=== PATIENT | female | born 2000 | race Caucasian/White ===

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

== ENCOUNTER 2021-12-20 05:42 | Emergency (ER) | payer OTHER, MEDICAID, SELFPAY ==
[2021-12-20 05:46] VITALS: BP 139/76; PULSE 76; RESP 16; TEMP 36.7; O2SAT 99; BMI 29.0
--- NOTE | 2021-12-20 06:06 | ED_ITS ---
HPI - Abdominal Pain General: Chief Complaint: Abdominal Pain Stated Complaint: ABD Pain and Back Pain Time Seen by Provider: 12/20/21 05:58 Source: patient Mode of arrival: ambulatory History of Present Illness: 21-year-old female presents emergency room with complaints of right-sided abdominal pain radiating to the pelvic area that began overnight. She has a history of ovarian cysts. She has Mirena and has been amenorrheic for the last 4 years. She denies any dysuria urgency or frequency no hematuria. Localizes the pain to the right lower quadrant. Vomiting x1. No hematochezia or melena no hematemesis coffee-ground emesis. Has not noticed anything that makes it better or worse. MD elicited complaint: abdominal pain Pertinent past history: other (Ovarian cysts) Onset (ago): hour(s) Pain Consistency: constant Location: RLQ Severity: mild Quality: cramping Radiation: suprapubic (Right side) Exacerbating factors: nothing Relieving factors: nothing Associated Symptoms: Reports GI cramping, nausea and vomiting; Denies anorexia, belching, bloating, change in bowel habits, change in stool character, chills, coffee ground emesis, constipation, diarrhea, dyspepsia, dysuria, excessive flatus, fever(s), heartburn, hematochezia, hematuria, hematemesis, fecal incontinence, loose stools, melena, poor appetite and syncope Review of Systems Const: Denies: fever(s), chills, fatigue or malaise ENMT: Denies: throat pain, ear or mastoid pain, nasal discharge or nasal congestion Card: Denies: chest pain or syncope Resp: Denies: dyspnea, productive cough or non-productive cough GI: Reports: abdominal pain, nausea, vomiting and GI cramping; Denies: hematemesis, coffee ground emesis, heartburn, diarrhea, constipation, bloating, belching, excessive flatus, fecal incontinence, change in bowel habits, change in stool character, hematochezia or melena : Denies: flank pain, difficulty voiding, dysuria, urinary frequency, urinary urgency or hematuria Skin/Breast: Denies: rash or pruritus PFSH ED PFSH: Medical History Pelvic pain Psychiatric care Family History Grandfather Hypertension maternal Denies family history of Diabetes Clotting disorder Hyperlipidemia Anesthesia complication Bleeding disorder Stroke Social History Smoking and tobacco status: never smoked Second hand smoke exposure: No Alcohol intake: never Physical Exam Const: GENERAL APPEARANCE: cooperative and comfortable ORIENTATION/CONSCIOUSNESS: Yes awake, Yes oriented to person, Yes oriented to place and Yes oriented to time HENMT: COMMON NORMALS: normocephalic, atraumatic and hearing grossly normal bilaterally HEAD & SCALP: normocephalic and atraumatic Resp: COMMON NORMALS: normal respiratory effort, No retractions, No use of accessory muscles and clear to auscultation bilaterally AUSCULTATION: clear to auscultation bilaterally Cardio: COMMON NORMALS: regular rate, regular rhythm and No murmurs present (Cardio) RATE: regular rate RHYTHM: regular rhythm GI: COMMON NORMALS: Soft to palpation and No hepatosplenomegaly present AUSCULTATION: Yes normoactive bowel sounds PALPATION: Yes Soft to palpation, No Tenderness to palpation present (GI), No Guarding due to palpation present (GI) and Yes No hepatosplenomegaly present Extremity: COMMON NORMALS: normal to inspection, capillary refill normal, no clubbing, cyanosis or edema, no calf tenderness and no pedal edema Neuro: SENSORIUM/ORIENTATION: Yes oriented to person, Yes oriented to place and Yes oriented to time Skin: COMMON NORMALS: no rashes or lesions noted GENERAL SKIN EXAM: no rashes or lesions noted Course Vital Signs: Vital signs: Vital Signs Temperature 98.1 F 12/20/21 05:46 Pulse Rate 84 12/20/21 08:02 Respiratory Rate 16 12/20/21 05:46 Blood Pressure 120/70 12/20/21 08:02 Pulse Oximetry 98 12/20/21 08:02 Oxygen Delivery Me thod 12/20/21 05:46 MDM - Abdominal Pain Medical Decision Making Labs and imaging reviewed. No emergent findings. Suspect gastroenteritis. Benign abdominal exam with normal white count. Return if is further problems. Clinical diet for 24 to 48 hours and advance as tolerated Medical Records I reviewed the patient's medical records. Lab Data I reviewed the patient's lab results. : 12/20/21 05:50 12/20/21 05:50 Labs/Radiology: Laboratory Results WBC 7.3 10^3/uL (4.5-13.0) 12/20/21 05:50 RBC 4.58 10^6/uL (4.1-5.3) 12/20/21 05:50 Hgb 13.7 g/dL (11.5-15.3) 12/20/21 05:50 Hct 40.9 % (37.0-47.0) 12/20/21 05:50 MCV 89.3 fl (81-99) 12/20/21 05:50 MCH 29.9 pg (28.0-34.0) 12/20/21 05:50 MCHC 33.5 g/dL (30.0-36.0) 12/20/21 05:50 RDW 12.6 % (12.1-15.1) 12/20/21 05:50 Plt Count 267 10^3/cmm (130-400) 12/20/21 05:50 MPV 12.3 fL (7.4-10.4) H 12/20/21 05:50 Neut % (Auto) 61.4 % 12/20/21 05:50 Lymph % (Auto) 27.2 % 12/20/21 05:50 [place] % (Auto) 9.3 % 12/20/21 05:50 Eos % (Auto) 1.2 % 12/20/21 05:50 Baso % (Auto) 0.5 % 12/20/21 05:50 Neut # (Auto) 4.50 10^3/uL (1.8-8.0) 12/20/21 05:50 Lymph # (Auto) 2.0 10^3/uL (1.5-6.5) 12/20/21 05:50 [place] # (Auto) 0.7 10^3/uL (0.2-0.9) 12/20/21 05:50 Eos # (Auto) 0.1 10^3/uL (0.0-0.8) 12/20/21 05:50 Baso # (Auto) 0.0 10^3/uL (0.0-0.1) 12/20/21 05:50 Nucleated RBC % (auto) 0 % 12/20/21 05:50 Nucleated RBCs # 0.0 /100WBC 12/20/21 05:50 Sodium 138 mmol/L (136-145) 12/20/21 05:50 Potassium 4.4 mmol/L (3.5-5.1) 12/20/21 05:50 Chloride 104 mmol/L (98-107) 12/20/21 05:50 Carbon Dioxide 24 mmol/L (22-29) 12/20/21 05:50 Anion Gap 14.4 (5-19) 12/20/21 05:50 BUN 13 mg/dL (6-20) 12/20/21 05:50 Creatinine 1.0 mg/dL (0.5-0.9) H 12/20/21 05:50 GFR Calculation 70.7 mL/min (90-130) L 12/20/21 05:50 Glucose 90 mg/dL (65-115) 12/20/21 05:50 Calculated Osmolality 286 mOsm/kg (285-295) 12/20/21 05:50 Calcium 9.4 mg/dL (8.5-10.5) 12/20/21 05:50 Total Bilirubin 0.4 mg/dL (0.15-1.2) 12/20/21 05:50 AST 12 U/L (0-32) 12/20/21 05:50 ALT 8 U/L (0-33) 12/20/21 05:50 Alkaline Phosphatase 76 U/L (35-105) 12/20/21 05:50 Total Protein 6.9 g/dL (6.6-8.7) 12/20/21 05:50 Albumin 4.3 g/dL (3.5-5.2) 12/20/21 05:50 Globulin 2.6 g/dL (1.3-4.6) 12/20/21 05:50 Lipase 24 U/L (13-60) 12/20/21 05:50 HCG, Qual Negative (Negative) 12/20/21 05:50 Urine Color Yellow (Yellow) 12/20/21 05:50 Urine Appearance Clear (CLEAR) 12/20/21 05:50 Urine pH 5 (5-7) 12/20/21 05:50 Ur Specific [place] 1.020 (1.005-1.030) 12/20/21 05:50 Urine Protein Neg (Negative) 12/20/21 05:50 Urine Glucose (UA) Norm (Normal) 12/20/21 05:50 Urine Ketones Negative (Negative) 12/20/21 05:50 Urine Blood Neg (Negative) 12/20/21 05:50 Urine Nitrate Negative (Negative) 12/20/21 05:50 Urine Bilirubin Neg (Negative) 12/20/21 05:50 Urine Urobilinogen Norm mg/dL (Negative) 12/20/21 05:50 Ur Leukocyte Esterase Negative (Negative) 12/20/21 05:50 Discharge Plan Discharge Patient Disposition: Home Clinical Impression: Abdominal pain Condition: Stable Prescriptions: New diclofenac sodium 75 mg tablet,delayed release (DR/EC) 75 mg PO Q12H PRN (Reason: pain) Qty: 20 0RF No Action adapalene [Differin] 0.3 % gel with pump 1 applic topical DAILY Qty: 45 2RF Rx Instructions: Apply a pea sized amount to clean dry face nightly Mirena 20 mcg/24 hours (5 yrs) 52 mg intrauterine device 1 device INTRAUTERI ONCE Discharge Orders: Discharge ED (Routine); Ordered 12/20/21 Ordered By: Pedro Singer Discharge Diet: Clear Liquid Discharge Activity: Increase activity as tolerated Patient Instructions: Abdominal Pain (ED), Opioid Safety, Pain Management Activity Restrictions/Additional Instructions: Clear liquid diet 24 to 48 hours use diclofenac as needed. Recheck with primary care if not improving. Stand Alone Forms: Work/School Release Coding Level of Care Code ED Clinical Coordinator for Pawang Fwd Exam Detailed
[2021-12-20 06:11] LABS: Basophils % 0.5 %; Eosinophils # 0.1 10^3/uL (0.0-0.8); Eosinophils % 1.2 %; Hematocrit 40.9 % (37.0-47.0); Hemoglobin 13.7 g/dL (11.5-15.3); Lymphocytes % 27.2 %; Mean Corpuscular HGB Conc 33.5 g/dL (30.0-36.0); Mean Corpuscular Hemoglobin 29.9 pg (28.0-34.0); Mean Corpuscular Volume 89.3 fl (81-99); Mean Platelet Volume 12.3 fL (7.4-10.4); Monocytes # 0.7 10^3/uL (0.2-0.9); Monocytes % 9.3 %; Neutrophils % 61.4 %; Nucleated Red Blood Cells % 0 %; Platelet Count 267 10^3/cmm (130-400); Red Blood Count 4.58 10^6/uL (4.1-5.3); Red Cell Distribution Width 12.6 % (12.1-15.1); White Blood Count 7.3 10^3/uL (4.5-13.0)
[2021-12-20 06:18] LABS: HCG, Serum Qual Negative (Negative)
[2021-12-20 06:19] LABS: Add Urine Microscopic? NO; Charge for UA Resulting for Rev
[2021-12-20 06:26] LABS: Alanine Aminotransferase 8 U/L (0-33); Albumin Level 4.3 g/dL (3.5-5.2); Alkaline Phosphatase 76 U/L (35-105); Anion Gap 14.4 (5-19); Aspartate Amino Transferase 12 U/L (0-32); Blood Urea Nitrogen 13 mg/dL (6-20); Calcium 9.4 mg/dL (8.5-10.5); Carbon Dioxide 24 mmol/L (22-29); Chloride 104 mmol/L (98-107); Globulin 2.6 g/dL (1.3-4.6); Glomerular Filtration Rate 70.7 mL/min (90-130); Glucose 90 mg/dL (65-115); Lipase 24 U/L (13-60); Osmolality Calculated 286 mOsm/kg (285-295); Potassium 4.4 mmol/L (3.5-5.1); Sodium 138 mmol/L (136-145); Total Bilirubin 0.4 mg/dL (0.15-1.2); Total Protein 6.9 g/dL (6.6-8.7)
[2021-12-20 06:45] LABS: Bilirubin Urine Neg (Negative); Blood Urine Neg (Negative); Glucose Urine UA Norm (Normal); Ketones Urine Negative (Negative); Leukocyte Esterase Urine Negative (Negative); Nitrate Urine Negative (Negative); Protein Urine Neg (Negative); Urine Appearance Clear (CLEAR); Urine Color Yellow (Yellow); Urobilinogen Urine Norm (Negative); pH Urine 5 (5-7)
[2021-12-20 08:02] VITALS: BP 120/70; PULSE 84; O2SAT 98
== END 2021-12-20 08:04 | disposition home or self-care (01) ==
PROVIDERS: Emergency Provider Family Medicine
DX: R10.9 Unspecified abdominal pain (principal)
CPT/HCPCS: 80053; 81003; 83690; 84703; 85025; 99283

== ENCOUNTER 2022-03-16 06:39 | Emergency (ER) | payer MEDICAID, SELFPAY ==
[2022-03-16 06:43] VITALS: BP 120/82; PULSE 126; RESP 18; TEMP 36.3; O2SAT 99; BMI 29.0
[2022-03-16 06:51] VITALS: BP 120/69; PULSE 105; RESP 18; O2SAT 96
--- NOTE | 2022-03-16 06:55 | XRR_ITS ---
PROCEDURE INFORMATION: Exam: XR Left Hand Exam date and time: 03/16/2022 7:06 AM Age: 21 years old Clinical indication: Injury or trauma; Fall; Blunt trauma (contusions or hematomas); Left; Ring finger TECHNIQUE: Imaging protocol: Radiologic exam of the Left hand. Views: 3 or more views. COMPARISON: No relevant prior studies available. FINDINGS: Bones/joints: Acute displaced fracture of the middle phalanx the ring finger. Soft tissues: There is soft tissue edema of the ring finger. XR/XR hand LT min 3V* [id number] IMPRESSION: Acute displaced fracture of the middle phalanx the ring finger.
--- NOTE | 2022-03-16 07:02 | W.ED.EXTPRO ---
HPI - Extremity Problem General: Chief complaint: Extremity Injury, Upper Stated complaint: Left fingers are in pain. Time Seen by Provider: 03/16/22 06:55 Source: patient Mode of arrival: ambulatory History of Present Illness: 21-year-old female stumbled and fell down the stairs this morning left fourth finger deformity and pain. She also has an abrasion on the inner aspect of her lower lip. She denies loss consciousness denies any other injuries. No neck or head pain. No recent illness cough or cold symptoms MD Complaint: extremity pain Onset (ago): minute(s) Pain Consistency: constant Location: left (Fourth finger) Quality: sharp Relieving factors: rest Exacerbating factors: palpation Associated symptoms: Deny fever(s) Review of Systems Const: Reports: body aches; Denies: fever(s), chills, change in appetite, fatigue or malaise ENMT: Denies: throat pain, ear or mastoid pain, nasal discharge or nasal congestion Resp: Denies: dyspnea, productive cough or non-productive cough PFSH ED PFSH: Medical History Pelvic pain Posttraumatic stress disorder Psychiatric care Family History Grandfather Hypertension maternal Denies family history of Diabetes Clotting disorder Hyperlipidemia Anesthesia complication Bleeding disorder Stroke Social History Smoking and tobacco status: never smoked Second hand smoke exposure: No Alcohol intake: never Physical Exam Const: COMMON NORMALS: no acute distress GENERAL APPEARANCE: cooperative and comfortable ORIENTATION/CONSCIOUSNESS: Yes awake, Yes oriented to person, Yes oriented to place and Yes oriented to time HENMT: COMMON NORMALS: normocephalic and hearing grossly normal bilaterally HEAD & SCALP: normocephalic Eye: COMMON NORMALS: Equal, round and reactive pupils present, EOMs intact bilaterally, conjunctivae normal and no scleral icterus CONJUNCTIVA: Yes conjunctivae normal PUPIL: Yes Equal, round and reactive pupils present Neck/C-Spine: COMMON NORMALS: full ROM, no lymphadenopathy, supple and no JVD Resp: COMMON NORMALS: normal respiratory effort, No retractions, No use of accessory muscles and clear to auscultation bilaterally AUSCULTATION: clear to auscultation bilaterally Cardio: COMMON NORMALS: no JVD, regular rate, regular rhythm and No murmurs present (Cardio) RATE: regular rate RHYTHM: regular rhythm Extremity: OTHER: Slight deformity of the right fourth finger at the middle phalanx Neuro: SENSORIUM/ORIENTATION: Yes oriented to person, Yes oriented to place and Yes oriented to time Skin: COMMON NORMALS: no rashes or lesions noted GENERAL SKIN EXAM: no rashes or lesions noted Course Vital Signs: Vital signs: Vital Signs Temperature 97.4 F L 03/16/22 06:43 Pulse Rate 105 H 03/16/22 06:51 Respiratory Rate 18 03/16/22 06:51 Blood Pressure 120/69 03/16/22 06:51 Pulse Oximetry 96 03/16/22 06:51 MDM - Extremity (Nontraumatic) Medical Decision Making Longitudinal fracture of the middle phalanx of the left fourth finger. Splint applied elevate ice tramadol or Tylenol for pain and set up follow-up with orthopedics. Medical Records I reviewed the patient's medical records. Lab Data I reviewed the patient's lab results. Discharge Plan Discharge Patient Disposition: Home Clinical Impression: Fracture of phalanx of digit of hand Qualifiers: Encounter type: initial encounter Fracture type: closed Qualified Code(s): S62.609A - Fracture of unspecified phalanx of unspecified finger, initial encounter for closed fracture Condition: Stable Prescriptions: New tramadol 50 mg tablet 50 mg PO Q8H PRN (Reason: pain) Qty: 10 0RF No Action Mirena 20 mcg/24 hours (5 yrs) 52 mg intrauterine device 1 device INTRAUTERI ONCE bupropion HCl [Wellbutrin XL] 300 mg tablet extended release 24 hr 300 mg PO QAM Qty: 30 1RF prazosin 1 mg capsule 1 mg PO .HS Qty: 30 1RF Discharge Orders: Discharge ED (Routine); Ordered 03/16/22 Ordered By: Pedro Singer Discharge Diet: Usual diet Discharge Activity: Limit activity as instructed Patient Instructions: Opioid Safety, Pain Management Activity Restrictions/Additional Instructions: You were seen today for pain in the left fourth finger. X-ray showed you have a fracture of the middle phalanx (middle bone of the finger). Wear the splint until you are seen by orthopedics. Keep the third and fourth finger fili taped together on the splint. Ice elevate you can use the tramadol as needed along with Tylenol for discomfort. Stand Alone Forms: Work/School Release Coding Level of Care Code ED Operations Processor for Jose Miguel Fwd Exam Detailed
--- NOTE | 2022-03-18 11:37 | DCPLANNER ---
Addendum entered by Lelo Varner 03/26/22 14:48: Patient had a follow up appointment scheduled with ortho - patient did attend appointment. Addendum entered by Lelo Varner 03/20/22 11:32: Patient has a follow up appointment scheduled for Tuesday, March 22, 2022 at 10:[address] Braxton at ortho. Clinic will call patient with appointment information. Original Note: manager epic had message to schedule a follow up appointment for patient with ortho. manager epic sent patients information to the front office staff at ortho. Patients information will be printed and reviewed. Clinic will call patient with appointment information.
== END 2022-03-16 07:47 | disposition home or self-care (01) ==
PROVIDERS: Emergency Provider Family Medicine
DX: S62.625A Displaced fracture of middle phalanx of left ring finger, initial encounter for closed fracture (principal); W10.8XXA Fall (on) (from) other stairs and steps, initial encounter
CPT/HCPCS: 73130; 99283

== ENCOUNTER 2022-03-22 01:00 | Outpatient (CLI) | payer MEDICAID, SELFPAY | END 2022-03-22 23:00 | disposition home or self-care (01) | LOC: SPT 04-16 18:37 | PROVIDERS: Visit Provider Orthopaedic Surgery | DX: Z46.89 Encounter for fitting and adjustment of other specified devices (principal); S62.609A Fracture of unspecified phalanx of unspecified finger, initial encounter for closed fracture; X58.XXXA Exposure to other specified factors, initial encounter | CPT/HCPCS: L3982 ==

== ENCOUNTER → 2022-03-22 11:10 | Outpatient (BNVA) | payer MEDICAID, SELFPAY | PROVIDERS: Referring Provider Family Medicine; Visit Provider Orthopaedic Surgery | DX: S62.653A Nondisplaced fracture of middle phalanx of left middle finger, initial encounter for closed fracture (principal); W10.9XXA Fall (on) (from) unspecified stairs and steps, initial encounter | CPT/HCPCS: 73140 ==

== ENCOUNTER → 2022-03-27 15:37 | Outpatient (BNVA) | payer MEDICAID, SELFPAY | PROVIDERS: Visit Provider Orthopaedic Surgery | DX: S62.625A Displaced fracture of middle phalanx of left ring finger, initial encounter for closed fracture (principal); X58.XXXA Exposure to other specified factors, initial encounter | CPT/HCPCS: 73130 ==

== ENCOUNTER 2022-08-11 18:50 | Emergency (ER) | payer MEDICAID, SELFPAY ==
[2022-08-11 19:11] VITALS: BP 129/82; PULSE 114; RESP 14; TEMP 36.9; O2SAT 100; BMI 29.0
[2022-08-11 19:17] VITALS: BP 110/59
--- NOTE | 2022-08-11 19:21 | USR_ITS ---
PROCEDURE INFORMATION: Exam: US First Trimester, Transabdominal and US , Transvaginal Exam date and time: 08/11/2022 7:51 PM Age: 21 years old Clinical indication: Lmp or gestational age (in weeks): 6w 1 d; Antepartum complications; Bleeding; ; Additional info: Vaginal bleeding LABS AND CLINICAL REPORTS: Last menstrual period start date: 06/29/2022 Gestational age (Established): 6 w 1 d Estimated due date (Established): 04/05/2023 TECHNIQUE: Imaging protocol: Real-time transabdominal obstetrical ultrasound of the maternal pelvis and a first trimester , less than 14 weeks 0 days, with image documentation. Transvaginal imaging was used for better evaluation of the fetus, adnexa, and/or cervix. COMPARISON: CT abdomen pelvis w con* [id number] 10/23/2020 12:55 PM FINDINGS: Gestation: Yolk sac measures 3 mm. Embryonic/ heart rate: 164 bpm. Extra-embryonic membranes/Placenta: Unremarkable. No subchorionic bleed. Amniotic fluid: Amniotic fluid and extra-amniotic fluid is normal for gestational age. BIOMETRY: Gestational age (AUA): 6 w 1 d [place]-Rump length (CRL): 4.1 mm. EGA (CRL) is 6 w 1 d MATERNAL: Uterus: Unremarkable. Cervix: Unremarkable. Right ovary/adnexa: Unremarkable ovary. Left ovary/adnexa: Unremarkable ovary. Intraperitoneal space: No intraperitoneal free fluid. US/US OB <=14 wk fetus w transvag IMPRESSION: Live intrauterine gestation.
[2022-08-11] MEDS: sodium chloride 0.9% 1,000 ML 999 ML IV (19:41)
[2022-08-11 20:15] LABS: Basophils % 0.2 %; Eosinophils # 0.1 10^3/uL (0.0-0.8); Eosinophils % 0.7 %; Hematocrit 40.9 % (37.0-47.0); Hemoglobin 13.4 g/dL (11.5-15.3); Lymphocytes % 23.9 %; Mean Corpuscular HGB Conc 32.8 g/dL (30.0-36.0); Mean Corpuscular Hemoglobin 29.1 pg (28.0-34.0); Mean Corpuscular Volume 88.9 fl (81-99); Mean Platelet Volume 11.7 fL (7.4-10.4); Monocytes # 0.8 10^3/uL (0.2-0.9); Monocytes % 6.1 %; Neutrophils # 8.66 10^3/uL (1.8-8.0); Neutrophils % 68.6 %; Nucleated Red Blood Cells % 0 %; Platelet Count 264 10^3/cmm (130-400); Red Cell Distribution Width 12.4 % (12.1-15.1); White Blood Count 12.6 10^3/uL (4.5-13.0)
--- NOTE | 2022-08-11 20:16 | ED_ITS ---
HPI - General: Chief complaint: OB/Uterine Contractions Stated complaint: 17 Weeks Preg\Bleeding Time Seen by Provider: 08/11/22 18:56 Source: patient Mode of arrival: ambulatory History of Present Illness: 21-year-old female who is roughly 6 weeks states she has had some slight spotting today. States it seemed to happen after sex states that she went to the bathroom when she checked the ER no bleeding was a little heavier but still minimal not even going through a pad no clots she is denying any severe pain or vomiting. Associated symptoms: Deny abdominal pain, dysuria, nausea or vomiting Review of Systems Const: Denies: fever(s), chills, body aches or change in appetite ENMT: Denies: throat pain or dental pain Card: Denies: chest pain Resp: Denies: dyspnea GI: Denies: abdominal pain, nausea, vomiting or diarrhea : Reports: vaginal bleeding; Denies: dysuria Musc: Denies: neck pain or back pain Skin/Breast: Denies: rash PFSH ED 2 PFSH: Medical History Pelvic pain Posttraumatic stress disorder Psychiatric care Family History Grandfather Hypertension maternal Denies family history of Diabetes Clotting disorder Hyperlipidemia Anesthesia complication Bleeding disorder Stroke Social History Smoking and tobacco status: never smoked Second hand smoke exposure: No Alcohol intake: never Substance/Drug Use: never Physical Exam Const: COMMON NORMALS: no acute distress, patient oriented x3 and healthy appearing HENMT: COMMON NORMALS: normocephalic and atraumatic HEAD & SCALP: normocephalic and atraumatic Neck/C-Spine: COMMON NORMALS: full ROM and supple Chest: COMMONS NORMALS: normal inspection of the chest and normal palpation of entire chest wall Resp: COMMON NORMALS: normal respiratory effort Cardio: COMMON NORMALS: regular rate, regular rhythm and No murmurs present (Cardio) RATE: regular rate RHYTHM: regular rhythm GI: COMMON NORMALS: Normal to inspection, nondistended, normoactive bowel sounds present, Soft to palpation, non-tender and no masses PALPATION: Yes Soft to palpation Extremity: COMMON NORMALS: normal to inspection and full ROM Neuro: COMMON NORMALS: patient oriented x3, moves all extremities and no focal motor deficits Psych: COMMON NORMALS: mental status grossly normal, Normal thought process present and cooperative THOUGHT PROCESS: Normal thought process present Skin: COMMON NORMALS: no rashes or lesions noted and no wounds GENERAL SKIN EXAM: no rashes or lesions noted Course Vital Signs: Vital signs: Vital Signs Temperature 98.5 F 08/11/22 19:11 Pulse Rate 114 H 08/11/22 19:11 Respiratory Rate 14 08/11/22 19:11 Blood Pressure 110/59 08/11/22 19:17 Pulse Oximetry 100 08/11/22 19:11 Oxygen Delivery Me thod Room Air 08/11/22 19:11 MDM - OB/Uterine Contractions Medical Decision Making Patient presents here with some vaginal bleeding in early spotting in nature no clots ultrasound here showed an IUP no UTI her exam here is benign no tenderness. She is stable for discharge she is to follow-up with her OB return if worsening she understands agrees to plan. Medical Records I reviewed the patient's medical records. Lab Data I reviewed the patient's lab results. 08/11/22 19:30 Radiology Impressions Obstetrics Ultrasound 08/11/22 19:21 IMPRESSION: Live intrauterine gestation. Laboratory Results WBC 12.6 10^3/uL (4.5-13.0) 08/11/22 19:30 RBC 4.60 10^6/uL (4.1-5.3) 08/11/22 19:30 Hgb 13.4 g/dL (11.5-15.3) 08/11/22 19:30 Hct 40.9 % (37.0-47.0) 08/11/22 19:30 MCV 88.9 fl (81-99) 08/11/22 19:30 MCH 29.1 pg (28.0-34.0) 08/11/22 19:30 MCHC 32.8 g/dL (30.0-36.0) 08/11/22 19:30 RDW 12.4 % (12.1-15.1) 08/11/22 19:30 Plt Count 264 10^3/cmm (130-400) 08/11/22 19:30 MPV 11.7 fL (7.4-10.4) H 08/11/22 19:30 Neut % (Auto) 68.6 % 08/11/22 19:30 Lymph % (Auto) 23.9 % 08/11/22 19:30 [place] % (Auto) 6.1 % 08/11/22 19:30 Eos % (Auto) 0.7 % 08/11/22 19:30 Baso % (Auto) 0.2 % 08/11/22 19:30 Neut # (Auto) 8.66 10^3/uL (1.8-8.0) H 08/11/22 19:30 Lymph # (Auto) 3.0 10^3/uL (1.5-6.5) 08/11/22 19:30 Wilcox # (Auto) 0.8 10^3/uL (0.2-0.9) 08/11/22 19:30 Eos # (Auto) 0.1 10^3/uL (0.0-0.8) 08/11/22 19: Baso # (Auto) 0.0 10^3/uL (0.0-0.1) 08/11/22 19:30 Nucleated RBC % (auto) 0 % 08/11/22 19: Nucleated RBCs # 0.0 /100WBC 08/11/22 19:30 Ser , Semi-Qnt 97530.00 mIU/mL 08/11/22 19:30 Urine Color Yellow (Yellow) 08/11/22 20:41 Urine Appearance Clear (CLEAR) 08/11/22 20:41 Urine pH 6 (5-7) 08/11/22 20:41 Ur Specific [place] 1.025 (1.005-1.030) 08/11/22 20:41 Urine Protein Neg (Negative) 08/11/22 20:41 Urine Glucose (UA) Norm (Normal) 08/11/22 20:41 Urine Ketones Negative (Negative) 08/11/22 20:41 Urine Blood 2+ (Negative) H 08/11/22 20:41 Urine Nitrate Negative (Negative) 08/11/22 20:41 Urine Bilirubin Neg (Negative) 08/11/22 20:41 Urine Urobilinogen Norm mg/dL (Negative) 08/11/22 20:41 Ur Leukocyte Esterase Negative (Negative) 08/11/22 20:41 Urine RBC 0-4 /hpf (0-2) H 08/11/22 20:41 Urine WBC 0-4 /hpf (0-5) H 08/11/22 20:41 Ur Squamous Epith Cells 0-4 /hpf (0-5) H 08/11/22 20:41 Amorphous Sediment Not Reportable 08/11/22 20:41 Urine Bacteria Trace /hpf (NONE) 08/11/22 20:41 Blood Type O Positive 08/11/22 19:30 Rho(D) Type Positive 08/11/22 19:30 Antibody Screen Negative 08/11/22 19:30 Discharge Plan Discharge Patient Disposition: Home Clinical Impression: Threatened miscarriage Condition: Stable Prescriptions: No Action Mirena 20 mcg/24 hours (5 yrs) 52 mg intrauterine device 1 device INTRAUTERI ONCE aripiprazole [Abilify] 5 mg tablet 5 mg PO DAILY Qty: 30 1RF bupropion HCl [Wellbutrin XL] 300 mg tablet extended release 24 hr 300 mg PO QAM Qty: 30 1RF prazosin 1 mg capsule 1 mg PO .HS Qty: 30 1RF Discharge Orders: Discharge ED (Routine); Ordered 08/11/22 Ordered By: Paloma Patino Referrals: Tom Bentley MD [Physician] - 1-3 days Discharge Diet: Advance as tolerated Discharge Activity: Resume usual activity Patient Instructions: Threatened Miscarriage (ED) Coding Level of Care Code ED Software Engineering Specialist for Jose Miguel Malcolm
[2022-08-11 20:47] VITALS: BP 110/59; PULSE 87; RESP 16; O2SAT 99
[2022-08-11 21:00] LABS: Urine Color Yellow (Yellow)
[2022-08-11 21:01] LABS: Add Urine Microscopic? YES; Bacteria Urine TRACE /hpf; Bilirubin Urine Neg (Negative); Blood Urine 2+ (Negative); Glucose Urine UA Norm (Normal); Ketones Urine Negative (Negative); Leukocyte Esterase Urine Negative (Negative); Nitrate Urine Negative (Negative); Protein Urine Neg (Negative); RBC Urine 0-4 /hpf (0-2); Specific Gravity, Urine 1.025 (1.005-1.030); Squamous Epithelial Cell Urine 0-4 /hpf (0-5); Urine Appearance Clear (CLEAR); Urobilinogen Urine Norm (Negative); WBC Urine 0-4 /hpf (0-5); pH Urine 6 (5-7)
[2022-08-11 23:35] VITALS: BP 123/77; PULSE 88; RESP 16; O2SAT 100
== END 2022-08-11 21:15 | disposition home or self-care (01) ==
PROVIDERS: Emergency Provider Emergency Medicine
DX: O20.0 Threatened abortion (principal)
CPT/HCPCS: 36415; 76801; 76817; 81001; 84702; 85025; 86850; 86900; 96360; 99284; J7030

== ENCOUNTER 2022-08-12 20:14 | Emergency (ER) | payer MEDICAID, SELFPAY ==
[2022-08-12 20:19] VITALS: BP 113/73; PULSE 114; RESP 16; TEMP 36.8; O2SAT 100; BMI 29.0
--- NOTE | 2022-08-12 20:45 | ED_ITS ---
HPI - General: Chief complaint: OB/Uterine Contractions Stated complaint: vaginal, bleeding, Time Seen by Provider: 08/12/22 20:39 History of Present Illness: Mrs. Mroel is a 21-year-old G1 female presenting to the emergency department for vaginal bleeding and possible passage of tissue. She was seen yesterday for vaginal bleeding and found to be 6 weeks with live IUP. Has had mild abdominal cramping as well as continued vaginal bleeding and passed a small amount of tissue few hours ago. Denies other significant changes. No other specific changes in health, exacerbating, or alleviating factors identified. Onset (ago): hour(s) Severity: mild Quality: Cramping Vaginal bleeding: light Patient : Yes Number of Weeks : 6 Review of Systems General: Reports: 10 or more systems reviewed and unremarkable except in HPI and below PFSH ED PFSH: Medical History (Updated 08/19/22 @ 00:01 by NENITA Martin) No pertinent past medical history neghx: htn,dm,thyroid,dvt/pe PCP: none Pelvic pain Posttraumatic stress disorder Psychiatric care Surgical History (Updated 08/14/22 @ 10:28 by Li Phillip APN, WHNP) No history of previous surgery Family History Grandfather Hypertension maternal Denies family history of Colon cancer Ovarian cancer Diabetes Clotting disorder Hyperlipidemia Breast cancer Anesthesia complication Bleeding disorder Uterine cancer Thyroid condition Stroke Social History Smoking and tobacco status: never smoked Second hand smoke exposure: No Alcohol intake: never Substance/Drug Use: never Physical Exam Const: COMMON NORMALS: alert GENERAL APPEARANCE: cooperative and well developed HENMT: COMMON NORMALS: normocephalic and atraumatic HEAD & SCALP: normocephalic and atraumatic Eye: COMMON NORMALS: conjunctivae normal CONJUNCTIVA: Yes conjunctivae normal SCLERA: sclerae normal Neck/C-Spine: COMMON NORMALS: supple GENERAL: Yes trachea midline Resp: COMMON NORMALS: clear to auscultation bilaterally EFFORT & INSPECTION: Yes able to speak in complete sentences AUSCULTATION: clear to auscultation bilaterally Cardio: COMMON NORMALS: regular rate and regular rhythm RATE: regular rate RHYTHM: regular rhythm GI: COMMON NORMALS: Soft to palpation PALPATION: Yes Soft to palpation, Yes Tenderness to palpation present (GI), No Guarding due to palpation present (GI) and No Rigid due to palpation Extremity: GENERAL: Yes normal exam except as noted and No edema Neuro: COMMON NORMALS: moves all extremities SENSORIUM/ORIENTATION: Yes alert and No Orientation impaired Psych: COMMON NORMALS: mental status grossly normal and Normal thought process present THOUGHT PROCESS: Normal thought process present Procedures Perimortem Number of Weeks : 6 Course Vital Signs: Vital signs: Vital Signs Temperature 98.2 F 08/12/22 20:19 Pulse Rate 114 H 08/12/22 20:19 Respiratory Rate 16 08/12/22 20:19 Blood Pressure 113/73 08/12/22 20:19 Pulse Oximetry 100 08/12/22 20:19 Oxygen Delivery Me thod Room Air 08/12/22 20:19 MDM - OB/Uterine Contractions Medical Decision Making 21-year-old female presenting with continued obstetric related concerns. Exam as above. Patient is nontoxic. No evidence of acute surgical abdomen. hCG continues to be increasing. Prior blood type reviewed. [id number] ultrasound reveals gestational sac without obvious internal debris, there does appear to be a yolk sac at the posterior aspect with likely cardiac activity identified heart rate 176. Previous day obstetric ultrasound reviewed. Most likely etiology of patient symptoms is bleeding with continued threatened miscarriage. The results of ED evaluation were discussed with the patient including prescriptions and/or symptomatic cares (if applicable) including appropriate and responsible use, followup plan, and return precautions. The patient verbalized understanding and felt safe for discharge. Medical Records I reviewed the patient's medical records. Lab Data I reviewed the patient's lab results. Laboratory Results Ser , Semi-Qnt 43989.00 mIU/mL 08/12/22 21:21 Discharge Plan Discharge Patient Disposition: Home Clinical Impression: Threatened miscarriage Condition: Stable Prescriptions: No Action No Known Home Medications Discharge Orders: Discharge ED (Routine); Ordered 08/12/22 Ordered By: Raul Boogie Discharge Diet: Usual diet Discharge Activity: Resume usual activity Patient Instructions: Threatened Miscarriage (ED) Activity Restrictions/Additional Instructions: Thank you for visiting the emergency department. You were seen and evaluated for bleeding during early . The exact cause of your symptoms is unclear and the prognostic value of bleeding during early are also unclear. Please follow-up with a MEDICAL LABORATORY TECHNOLOGIST. Return to the emergency department for worsening abdominal pain, soaking through more than 2 pads per hour, continued vaginal bleeding associated with lightheadedness shortness of breath or chest pain, or anything else that you are concerned about and feel needs Emergency Department evaluation. Coding Level of Care Code ED Wired Sweatband Cutter for Jose Miguel Malcolm
--- NOTE | 2022-08-16 12:59 | DCPLANNER ---
manager relationship called patient due to no primary care physician - no answer at this time.
== END 2022-08-12 22:47 | disposition home or self-care (01) ==
PROVIDERS: Nurse Practitioner Family; Emergency Provider Emergency Medicine
DX: O20.0 Threatened abortion (principal); Z3A.01 Less than 8 weeks gestation of pregnancy
CPT/HCPCS: 84702; 99283

== ENCOUNTER → 2022-08-14 10:39 | Outpatient (BNVA) | payer MEDICAID, SELFPAY | PROVIDERS: Visit Provider Nurse Practitioner Women's Health | DX: O46.91 Antepartum hemorrhage, unspecified, first trimester (principal); Z3A.01 Less than 8 weeks gestation of pregnancy | CPT/HCPCS: 76817; 81025; 87491; 87591 ==

== ENCOUNTER → 2022-09-02 12:00 | Outpatient (BNVA) | payer MEDICAID, SELFPAY | PROVIDERS: Visit Provider Obstetrics & Gynecology | DX: Z34.00 Encounter for supervision of normal first pregnancy, unspecified trimester (principal) | CPT/HCPCS: 80307; 81000; 87086 ==

== ENCOUNTER → 2022-09-24 10:24 | Outpatient (BNVA) | payer MEDICAID, SELFPAY | PROVIDERS: Visit Provider Obstetrics & Gynecology | DX: Z34.00 Encounter for supervision of normal first pregnancy, unspecified trimester (principal) | CPT/HCPCS: 76801; 81000; 85027; 86592; 86762; 86803; 86850; 86900; 87340; 87806 ==

== ENCOUNTER → 2022-10-21 08:22 | Outpatient (BNVA) | payer MEDICAID, SELFPAY | PROVIDERS: Visit Provider Obstetrics & Gynecology | DX: Z34.00 Encounter for supervision of normal first pregnancy, unspecified trimester (principal) | CPT/HCPCS: 81000 ==

== ENCOUNTER → 2022-11-20 14:20 | Outpatient (BNVA) | payer MEDICAID, SELFPAY | PROVIDERS: Visit Provider Obstetrics & Gynecology | DX: Z34.80 Encounter for supervision of other normal pregnancy, unspecified trimester (principal) | CPT/HCPCS: 76805 ==

== ENCOUNTER → 2022-12-03 09:43 | Outpatient (BNVA) | payer MEDICAID, SELFPAY | PROVIDERS: Visit Provider Obstetrics & Gynecology | DX: Z34.00 Encounter for supervision of normal first pregnancy, unspecified trimester (principal); B37.31 Acute candidiasis of vulva and vagina | CPT/HCPCS: 81000 ==

== ENCOUNTER → 2022-12-20 08:32 | Outpatient (BNVA) | payer MEDICAID, SELFPAY | PROVIDERS: Visit Provider Nurse Practitioner Women's Health | DX: Z34.00 Encounter for supervision of normal first pregnancy, unspecified trimester (principal) | CPT/HCPCS: 76816; 81000 ==

== ENCOUNTER → 2023-01-14 10:18 | Outpatient (BNVA) | payer MEDICAID, SELFPAY | PROVIDERS: Visit Provider Obstetrics & Gynecology | DX: Z34.00 Encounter for supervision of normal first pregnancy, unspecified trimester (principal) | CPT/HCPCS: 81000; 82950; 85025 ==

== ENCOUNTER 2023-01-27 14:14 | Outpatient (CLI) | payer MEDICAID, SELFPAY ==
[2023-01-27] VITALS (34 sets, daily range): BP systolic 109–126; BP diastolic 58–78; PULSE 92–131; RESP 17; O2SAT 96–99; BMI 35.4
--- NOTE | 2023-01-27 15:10 | USR_ITS ---
PROCEDURE INFORMATION: Exam: US Biophysical Profile Without Non-Stress Test Exam date and time: 01/27/2023 3:46 PM Age: 22 years old Clinical indication: Other: Decreased movement; TECHNIQUE: Imaging protocol: US biophysical profile without non-stress testing. [place]PARISON: [place] [id number] 12/20/2022 8:35 AM FINDINGS: heart rate: 136 bpm Amniotic fluid index: GIBSON is 10.74 cm. BIOPHYSICAL PROFILE: breathing movement (BPP): 2 out of 2. body movement (BPP): 2 out of 2. tone (BPP): 2 out of 2. Amniotic fluid (BPP): 2 out of 2. US/US OB BPP wo NST [id number] IMPRESSION: Normal ultrasound biophysical profile.
[2023-01-27 15:33] LABS: Amphetamines Screen Urine Negative (Negative); Barbiturates Screen Urine Negative (Negative); Benzodiazepines Screen Urine Negative (Negative); Cocaine Screen Urine Negative (Negative); Opiate Screen Urine Negative (Negative); PCP Screen Urine Negative (Negative); THC Screen Urine Positive (Negative)
--- NOTE | 2023-01-27 16:38 | PM.OBTRLD ---
OB L&D Triage Visit Information: Date of evaluation: 01/27/23 Reason for evaluation: decreased movement Comments/Additional reason(s) for visit: 22-year-old female G1, P0 at 30.3 weeks gestation with RACHEL 04/04/2022. Patient was observed on labor and delivery with complaints of decreased movement. Patient denies vaginal bleeding or leakage of fluid. After IV fluid hydration and p.o. fluids and juice patient now admits to feeling good movement. She denies abdominal or pelvic pain. Discussed and advised small and frequent meals. EFM?category 1 at 30 weeks gestation. BPP 10/22. Past medical history?anxiety and depression (no medications) Surgical history?negative Allergies?none Social history?positive for marijuana Evaluation: Baseline heart rate: 130 Variability: Average (6-10) monitor accelerations: Present 10x10 monitor decelerations: None Cervical dilation (cm): 0 Laboratory results: Laboratory Tests 01/27/23 15:13 Urine Opiates Scre en Negative Ur Barbiturates Sc reen Negative Ur Phencyclidine S crn Negative Ur Amphetamines Sc reen Negative U Benzodiazepines Scrn Negative Urine Cocaine Scre en Negative U Marijuana (THC) Screen Positive H Vital signs: Vital Signs - 24 hr 01/27/23 14:36 01/27/23 14:39 01/27/23 14:44 Pulse Rate 131 H 121 H 110 H Blood Pressure 126/78 Pulse Oximetry 97 97 01/27/23 14:50 01/27/23 14:49 01/27/23 14:54 Pulse Rate 105 H 112 H 102 H Blood Pressure 110/61 Pulse Oximetry 97 97 01/27/23 14:59 01/27/23 15:04 01/27/23 15:05 Pulse Rate 110 H 107 H 109 H Blood Pressure 110/67 Pulse Oximetry 97 97 01/27/23 15:09 01/27/23 15:14 01/27/23 15:19 Pulse Rate 109 H 102 H 100 Blood Pressure Pulse Oximetry 98 98 96 01/27/23 15:21 01/27/23 15:24 01/27/23 15:29 Pulse Rate 99 96 103 H Blood Pressure 123/58 Pulse Oximetry 96 96 01/27/23 15:34 01/27/23 15:35 01/27/23 15:39 Pulse Rate 99 104 H 97 Blood Pressure 115/68 Pulse Oximetry 97 98 01/27/23 15:44 01/27/23 15:50 01/27/23 15:49 Pulse Rate 92 97 99 Blood Pressure 116/72 Pulse Oximetry 97 97 01/27/23 15:54 01/27/23 15:59 01/27/23 16:04 Pulse Rate 102 H 103 H 95 Blood Pressure Pulse Oximetry 96 98 97 01/27/23 16:05 01/27/23 16:09 01/27/23 16:14 Pulse Rate 96 103 H 95 Blood Pressure 109/70 Pulse Oximetry 99 98 01/27/23 16:20 01/27/23 16:19 01/27/23 16:24 Pulse Rate 100 110 H 103 H Blood Pressure 111/70 Pulse Oximetry 98 98 01/27/23 16:29 01/27/23 16:34 01/27/23 16:35 Pulse Rate 98 104 H 107 H Blood Pressure 109/72 Pulse Oximetry 97 98 Care RACHEL Calculator Estimated Delivery Date Method Current WG Current Estimate 04/04/23 LMP (Certain) 30w 3d Other Estimates 04/05/23 Ultrasound #1 30w 2d Final Diagnosis Final Diagnosis (1) 30 weeks gestation of : Plan: Plan #1 NST/BPP 2. Encourage frequent small meals and hydration 3. Keep visit 01/28/2023 4. Discharge to home Status: Acute Code(s): Z3A.30 - 30 weeks gestation of (2) Decreased movement: Status: Acute Code(s): O36.8190 - Decreased movements, unspecified trimester, not applicable or unspecified (3) Major depressive disorder, recurrent, moderate: Status: Acute Code(s): F33.1 - Major depressive disorder, recurrent, moderate (4) Generalized anxiety disorder: Status: Acute Code(s): F41.1 - Generalized anxiety disorder (5) Posttraumatic stress disorder: Status: Acute Code(s): F43.10 - Post-traumatic stress disorder, unspecified (6) Subchorionic hemorrhage, antepartum: Status: Acute Code(s): O46.8X9 - Other antepartum hemorrhage, unspecified trimester; O41.8X90 - Other specified disorders of amniotic fluid and membranes, unspecified trimester, not applicable or unspecified (7) Marijuana use during : Status: Acute Code(s): O99.320 - Drug use complicating , unspecified trimester; F12.90 - Cannabis use, unspecified, uncomplicated Coding Level of Care Code Acute Code for Chg Fwd Diagnoses 30 weeks gestation of Z3A.30 Decreased movement O36.8190 Major depressive disorder, recurrent, moderate F33.1 Generalized anxiety disorder F41.1 Posttraumatic stress disorder F43.10 Subchorionic hemorrhage, antepartum O46.8X9; O41.8X90 Marijuana use during O99.320; F12.90
== END 2023-01-27 16:50 | disposition home or self-care (01) ==
LOC: OPOB 14:20 → OBGYN 14:20
PROVIDERS: Visit Provider Obstetrics & Gynecology
DX: O36.8193 Decreased fetal movements, unspecified trimester, fetus 3 (principal); Z3A.30 30 weeks gestation of pregnancy; O99.343 Other mental disorders complicating pregnancy, third trimester; F33.1 Major depressive disorder, recurrent, moderate; F41.1 Generalized anxiety disorder; F43.10 Post-traumatic stress disorder, unspecified; O46.8X3 Other antepartum hemorrhage, third trimester; O41.8X90 Other specified disorders of amniotic fluid and membranes, unspecified trimester, not applicable or unspecified; O99.323 Drug use complicating pregnancy, third trimester; F12.90 Cannabis use, unspecified, uncomplicated
CPT/HCPCS: 59025; 76819; 80306; 99211

== ENCOUNTER → 2023-01-28 10:39 | Outpatient (BNVA) | payer MEDICAID, SELFPAY | PROVIDERS: Visit Provider Obstetrics & Gynecology | DX: Z34.00 Encounter for supervision of normal first pregnancy, unspecified trimester (principal) | CPT/HCPCS: 81000 ==

== ENCOUNTER → 2023-02-11 10:32 | Outpatient (BNVA) | payer MEDICAID, SELFPAY | PROVIDERS: Visit Provider Obstetrics & Gynecology | DX: Z34.00 Encounter for supervision of normal first pregnancy, unspecified trimester (principal) | CPT/HCPCS: 81000 ==

== ENCOUNTER → 2023-02-26 09:00 | Outpatient (BNVA) | payer MEDICAID, SELFPAY | PROVIDERS: Visit Provider Nurse Practitioner Women's Health | DX: Z34.03 Encounter for supervision of normal first pregnancy, third trimester (principal) | CPT/HCPCS: 81000; 87491; 87591 ==

== ENCOUNTER 2023-03-04 12:25 | Outpatient (CLI) | payer MEDICAID, SELFPAY ==
[2023-03-04 12:25] VITALS: BMI 36.0
[2023-03-04 12:45] VITALS: BP 123/75; PULSE 101
[2023-03-04 13:01] VITALS: BP 115/68; PULSE 115
[2023-03-04 13:17] VITALS: BP 118/72; PULSE 98
[2023-03-04] MEDS: acetaminophen 500 mg Tablet 1000 MG PO (13:21)
[2023-03-04 13:23] VITALS: TEMP 36.2
[2023-03-04 13:31] VITALS: BP 114/72; PULSE 104
== END 2023-03-04 13:39 | disposition home or self-care (01) ==
LOC: OPOB 12:32 → OBGYN 13:34
PROVIDERS: Visit Provider Obstetrics & Gynecology
DX: O16.9 Unspecified maternal hypertension, unspecified trimester (principal); Z3A.00 Weeks of gestation of pregnancy not specified; R51.9 Headache, unspecified
CPT/HCPCS: 59025; 99211

== ENCOUNTER 2023-03-11 12:25 | Outpatient (CLI) | payer MEDICAID, SELFPAY ==
[2023-03-11 12:25] VITALS: BMI 37.3
[2023-03-11 12:44] VITALS: BP 126/75; PULSE 99
[2023-03-11 13:04] VITALS: BP 117/70; PULSE 95
[2023-03-11 13:16] LABS: Bilirubin Urine Neg (Negative); Blood Urine Neg (Negative); Glucose Urine UA Norm (Normal); Ketones Urine Negative (Negative); Leukocyte Esterase Urine Negative (Negative); Nitrate Urine Negative (Negative); Protein Urine Neg (Negative); Urine Appearance Hazy (CLEAR); Urine Color Dark Yellow (Yellow); Urobilinogen Urine Norm (Negative); pH Urine 6.5 (5-7)
[2023-03-11 13:19] LABS: Add Urine Culture? No; Amorphous Sediment Urine TRACE /hpf; Bacteria Urine 1+ /hpf; Mucus Urine 1+ /hpf; Transitional Epi Cells Urine 0-4 /hpf; WBC Urine 0-4 /hpf (0-5)
[2023-03-11 13:24] VITALS: BP 119/74; PULSE 104
[2023-03-11 13:28] LABS: Urine Creatinine 185 mg/dL (28-217)
[2023-03-11 13:37] LABS: UPRO/UCREAT Ratio 0.11 mg/mg CR; Urine Protein Random 21 mg/dL
[2023-03-11 13:44] VITALS: BP 109/65; PULSE 91
[2023-03-11 14:04] VITALS: BP 106/64; PULSE 96
[2023-03-11 14:17] VITALS: BP 106/64; PULSE 96
== END 2023-03-11 14:15 | disposition home or self-care (01) ==
LOC: OPOB 12:34 → OBGYN 12:35
PROVIDERS: Absent Provider Obstetrics & Gynecology; Visit Provider Obstetrics & Gynecology
DX: O16.9 Unspecified maternal hypertension, unspecified trimester (principal); Z3A.00 Weeks of gestation of pregnancy not specified; R51.9 Headache, unspecified
CPT/HCPCS: 59025; 81000; 81001; 82570; 84156; 87081; 99211

== ENCOUNTER → 2023-03-18 10:33 | Outpatient (BNVA) | payer MEDICAID, SELFPAY | PROVIDERS: Visit Provider Obstetrics & Gynecology | DX: Z34.00 Encounter for supervision of normal first pregnancy, unspecified trimester (principal) | CPT/HCPCS: 81000 ==

== ENCOUNTER → 2023-03-25 13:33 | Outpatient (BNVA) | payer MEDICAID, SELFPAY | PROVIDERS: Visit Provider Obstetrics & Gynecology | DX: Z34.00 Encounter for supervision of normal first pregnancy, unspecified trimester (principal) | CPT/HCPCS: 81000 ==

== ENCOUNTER → 2023-04-01 10:26 | Outpatient (BNVA) | payer MEDICAID, SELFPAY | PROVIDERS: Visit Provider Obstetrics & Gynecology | DX: Z34.03 Encounter for supervision of normal first pregnancy, third trimester (principal) | CPT/HCPCS: 81000 ==

== ENCOUNTER → 2023-04-08 13:04 | Outpatient (BNVA) | payer MEDICAID, SELFPAY | PROVIDERS: Visit Provider Obstetrics & Gynecology | DX: Z34.03 Encounter for supervision of normal first pregnancy, third trimester (principal) | CPT/HCPCS: 81000 ==

== ENCOUNTER 2023-04-09 20:18 | Inpatient (IN) | payer MEDICAID, SELFPAY ==
[2023-04-09 20:00] VITALS: BMI 37.9
[2023-04-09 20:27] VITALS: BP 130/72; PULSE 96; RESP 18
[2023-04-09 20:43] VITALS: BP 137/71; PULSE 101
[2023-04-09 21:12] VITALS: BP 131/69; PULSE 108
[2023-04-09 21:27] VITALS: BP 119/75; PULSE 107
[2023-04-09] MEDS: miSOPROStol 100 mcg tablet 25 MCG VAGINAL (21:34)
[2023-04-09 21:55] LABS: Basophils % 0.2 %; Eosinophils % 0.2 %; Hematocrit 34.1 % (36-47); Lymphocytes # 2.4 10^3/uL (0.8-4.8); Lymphocytes % 14.5 %; Mean Corpuscular HGB Conc 33.4 g/dL (30-55); Mean Corpuscular Hemoglobin 27.5 pg (27-33); Mean Corpuscular Volume 82.2 fl (85-98); Mean Platelet Volume 12.4 fL (7.4-10.4); Monocytes # 0.7 10^3/uL (0.2-0.9); Neutrophils # 13.37 10^3/uL (1.8-7.7); Neutrophils % 80.1 %; Nucleated Red Blood Cells % 0 %; Platelet Count 273 10^3/cmm (157-399); Red Blood Count 4.15 10^6/uL (3.85-5.65); Red Cell Distribution Width 14.1 % (12.1-15.1)
--- NOTE | 2023-04-09 21:55 | PM.OBGYHP ---
Providers/Chief Complaint Admitting Physician: Reid Gomez MD Primary ELIGIBILITY MANAGER: Reid Gomez MD Chief Complaint: induction HPI ELIGIBILITY MANAGER History of Present Illness 22 y.o. G1 EDC April 04, 2023 At 40 w 5 d No complications Admitted for labor induction No c/o + active movements Present Details : 1 Para: 0 Labs Rubella: Unknown RPR: Negative GBS: Negative Medications/Allergies Home Medications Medication Instructions Recorded Confirmed Last Taken Type famotidine 20 mg tablet 20 mg PO BID #60 tabs 02/10/23 04/08/23 Unknown Rx RSV vac, preF A and preF B(PF) 120 0.5 ml IM ONCE #1 ea 02/26/23 04/08/23 Unknown Rx mcg/0.5 mL IM solution (Abrysvo) Allergies Allergy/AdvReac Type Severity Reaction Status Date / Time No Known Allergies Allergy Verified 04/08/23 12:55 PFSH ELIGIBILITY MANAGER PFSH: Medical History No pertinent past medical history neghx: htn,dm,thyroid,dvt/pe PCP: none Posttraumatic stress disorder Psychiatric care Pelvic pain Surgical History No history of previous surgery Family History Grandfather Hypertension maternal Denies family history of Colon cancer Ovarian cancer Diabetes Clotting disorder Hyperlipidemia Breast cancer Anesthesia complication Bleeding disorder Uterine cancer Thyroid disease Stroke Social History Smoking and tobacco/nicotine status: never used tobacco/nicotine Second hand smoke exposure: No Alcohol intake: never Substance/Drug Use: never Other Female Reproductive History: Hx Age of Menarche: 12 History History History 1 Term Miscarriages/Ectopic Living Children Care RACHEL Calculator Estimated Delivery Date Method Current WG Current Estimate 04/04/23 LMP (Certain) 41w 0d Other Estimates 04/05/23 Ultrasound #1 40w 6d Vitals/I&O/Wt Last Vital Signs Temp 98.5 F 04/10/23 22:30 Pulse 85 04/10/23 22:30 Resp 18 04/10/23 20:30 BP 134/87 04/10/23 22:30 Pulse Ox 98 04/10/23 22:30 O2 Del Method Room Air 04/10/23 22:30 04/10/23 04/10/23 04/11/23 14:59 22:59 06:59 Intake Total 1119.75 / 1119.75 479.5 / 1599.25 Output Total 500 / 500 Balance 1119.75 / 1119.75 -20.5 / 1099.25 Weight last 48 hrs Weight 242 lb Physical Exam Narrative: Weight 245 lbs; 5?7 VS normal Comfortable, awake, alert HEENT: normal Lungs: clear Cor: RRR Abd: nontender Fundal ht 37 cm, cephalic FHTs normal Cervix: FT / 75 / -4 / posterior Ext: no edema External monitor: heart tracing good variability, + accelerations Urinary Catheter Management: [place]: Cath Placed During This Visit: yes, but has since been removed by the nurse Reason for Continuing Indwelling Catheter: Decision to DC Catheter Urinary Catheter Date of Insertion: 04/10/23 Urinary Catheter Time of Insertion: 07:40 Date Urinary Catheter Removed: 04/10/23 Time Urinary Catheter Discontinued: 13:28 Data 04/11/23 03:00 Results Labs OB ([facility]): Obstetrics US 12/20/22 Obstetrics US/Biophysical Profile 01/27/23 Blood Type O Positive 04/09/23 Antibody Screen Negative 04/09/23 Hct 33.9 % (36-47) L 04/11/23 Hgb 11.00 g/dL (11.27-16.99) L 04/11/23 Rho(D) Type Rh positive 04/09/23 Plt Count 251 10^3/cmm (157-399) 04/11/23 Hep Bs Antigen Non-reactive (Nonreactive) 09/24/22 Hepatitis C Antibody Non-reactive (Nonreactive) 09/24/22 Rubella IgG Antibody 14.0 IU/mL (0.0-10.0) H 09/24/22 RPR Nonreactive (Nonreactive) 09/24/22 HIV 1&2 Ab & HIV 1 Ag Non-reactive (Non-Reactiv) 09/24/22 C.trachomatis RNA (TMA) Not detected (NOT DETECTED) 02/26/23 N.gonorrhoeae RNA (TMA) Not detected (NOT DETECTED) 02/26/23 T. vaginalis Amp RNA Not detected (NOT DETECTED) 02/26/23 Chlamydia/GC Comment See note 02/26/23 Glucose 1 Hr 50 gm 128 mg/dL (85-140) 01/14/23 Ser , Semi-Qnt 48152.00 mIU/mL 08/12/22 HCG, Qual Positive (Negative) H 08/14/22 Urine Opiates Screen Negative ng/mL (Negative) 04/09/23 Ur Barbiturates Screen Negative ng/mL (Negative) 04/09/23 Ur Phencyclidine Scrn Negative ng/mL (Negative) 04/09/23 Ur Amphetamines Screen Negative ng/mL (Negative) 04/09/23 U Benzodiazepines Scrn Negative ng/mL (Negative) 04/09/23 Urine Cocaine Screen Negative ng/mL (Negative) 04/09/23 U Marijuana (THC) Screen Positive ng/mL (Negative) H 04/09/23 Micro Urine Specimen 09/02/22 A&P Assessment and plan (1) Encounter for induction of labor: 40 w 5 d GBS negative Fetus reassuring Admit for labor induction Plan Cytotec 25 ug intravaginal Attestations Medical Necessity Statement*: patient at 40 w 5 d, admitted for induction of labor Coding Level of Care Code Acute Code for Chg Fwd Diagnoses Encounter for induction of labor Z34.90 Time Spent (min) 30
[2023-04-09 22:04] LABS: Amphetamines Screen Urine Negative (Negative); Barbiturates Screen Urine Negative (Negative); Benzodiazepines Screen Urine Negative (Negative); Cocaine Screen Urine Negative (Negative); Opiate Screen Urine Negative (Negative); PCP Screen Urine Negative (Negative); THC Screen Urine Positive (Negative)
[2023-04-09 22:08] VITALS: BP 123/77; PULSE 90
[2023-04-10] VITALS (49 sets, daily range): BP systolic 96–158; BP diastolic 54–94; PULSE 66–127; RESP 16–18; TEMP 36.7–36.9; O2SAT 97–100
--- NOTE | 2023-04-10 05:20 | PM.OBGYPN ---
DIGITAL PRODUCER Subjective Subjective: Interval history: Fetus reassuring Having moderate regular UCs SROM, clear fluid Cx: 1 cm Labor: Station: +1 Amniotic Membrane Status: Ruptured Monitor Mode: External Contraction Pattern: Irregular Vitals/I&O/Wt Last Vital Signs Temp 98.5 F 04/10/23 22:30 Pulse 85 04/10/23 22:30 Resp 18 04/10/23 20:30 BP 134/87 04/10/23 22:30 Pulse Ox 98 04/10/23 22:30 O2 Del Method Room Air 04/10/23 22:30 04/10/23 04/10/23 04/11/23 14:59 22:59 06:59 Intake Total 1119.75 / 1119.75 479.5 / 1599.25 Output Total 500 / 500 Balance 1119.75 / 1119.75 -20.5 / 1099.25 Weight last 48 hrs Weight 242 lb Physical Exam Urinary Catheter Management: [place]: Cath Placed During This Visit: yes, but has since been removed by the nurse Reason for Continuing Indwelling Catheter: Decision to DC Catheter Urinary Catheter Date of Insertion: 04/10/23 Urinary Catheter Time of Insertion: 07:40 Date Urinary Catheter Removed: 04/10/23 Time Urinary Catheter Discontinued: 13:28 Data 04/11/23 03:00 A&P Assessment and plan (1) Encounter for induction of labor: Attestations Medical Necessity Statement*: patient at 40 w 6 d, admitted for induction of labor Coding Level of Care Code Acute Code for Chg Fwd Diagnoses Encounter for induction of labor Z34.90 Time Spent (min) 20
[2023-04-10] MEDS: dextrose 5%-lactated ringers 1,000 ML 125 ML IV (05:45)
[2023-04-10] MEDS: oxytocin 30 UNIT/500 ML BAG IV (05:45)
[2023-04-10] MEDS: lactated ringers 1,000 ML 999 ML IV (06:01)
[2023-04-10] MEDS: ROPivacaine syringe 100 MG/50 ML SYRINGE 10 MG EPIDURAL ×2 (06:55→11:04)
--- NOTE | 2023-04-10 07:04 | P.ANESASSM_ITS ---
Pre-Anesthetic Assessment Height/Weight: Height 1.7 m Weight 109.769 kg Pulse Resp BP O2 Del Method 90 18 123/77 Room Air 04/09/23 22:08 04/09/23 20:27 04/09/23 22:08 04/09/23 22:08 Familial anesthetic complications: none Was Beta Mat taken within 24 hours: N/A Was Clonidine taken within 24 hours: N/A Social No alcohol and No tobacco Kassi use Exam alert, oriented x 3, clear to auscultation bilaterally and regular rate & rhythm Airway Submandibular: within normal limits Cervical ROM: within normal limits Mallampati: Class II Neuropsych Anxiety and Depression Anesthetic Plan ASA status: 2 Anesthesia: Regional (specify below) (Labor epidural) Medications/Allergies Home Medications Medication Instructions Recorded Confirmed Last Taken Type famotidine 20 mg tablet 20 mg PO BID #60 tabs 02/10/23 04/08/23 Unknown Rx RSV vac, preF A and preF B(PF) 120 0.5 ml IM ONCE #1 ea 02/26/23 04/08/23 Unknown Rx mcg/0.5 mL IM solution (Abrysvo) Allergies Allergy/AdvReac Type Severity Reaction Status Date / Time No Known Allergies Allergy Verified 04/08/23 12:55 Current Medications Generic Name Dose Route Start Last Admin Trade Name Freq PRN Reason Stop Dose Admin Dextrose/Lactated Ringer's 1,000 mls @ 125 mls/hr 04/09/23 21:00 04/10/23 05:45 Dextrose 5%-Lactated Ringers IV 125 mls/hr .Q8H LAKSHMI Administration Oxytocin 30 unit in 500 mls @ 1 mls/hr 04/10/23 05:15 04/10/23 06:00 Pitocin IV 2 milliunit/min .Q24H LAKSHMI 2 mls/hr Titration Protocol 1 MILLIUNIT/MIN Lactated Ringer's 1,000 mls @ 999 mls/hr 04/10/23 05:53 04/10/23 06:01 Lactated Ringers IV 999 mls/hr .Q1H1M PRN Administration See label comments Ropivacaine 100 mg in 50 mls @ 10 mls/hr 04/10/23 06:00 04/10/23 06:55 Naropin Syringe EPIDURAL 10 mls/hr .Q5H LAKSHMI Administration PFSH Anesthesia Medical History No pertinent past medical history neghx: htn,dm,thyroid,dvt/pe PCP: none Posttraumatic stress disorder Psychiatric care Pelvic pain Surgical History No history of previous surgery Family History Grandfather Hypertension maternal Denies family history of Colon cancer Ovarian cancer Diabetes Clotting disorder Hyperlipidemia Breast cancer Anesthesia complication Bleeding disorder Uterine cancer Thyroid disease Stroke Social History Smoking and tobacco/nicotine status: never used tobacco/nicotine Second hand smoke exposure: No Alcohol intake: never Substance/Drug Use: never Female Reproductive History : 1 Data Anesthesia 04/09/23 21:44 Short CBC 04/09/23 Range/Units 21:44 WBC 16.70 H (3.29-11.43) 10^3/uL Hgb 11.40 (11.27-16.99) g/dL Hct 34.1 L (36-47) % MCV 82.2 L (85-98) fl Plt Count 273 (157-399) 10^3/cmm Neut % (Auto) 80.1 % Neut # (Auto) 13.37 H (1.8-7.7) 10^3/uL Blood Bank 04/09/23 21:44 Blood Type O Positive Rho(D) Type Rh positive Antibody Screen Negative Cardiac Studies: 2 No Data to Display Anesthesia Procedures Epidural Time Out Performed: Yes Consents Signed: Procedure Consent Consent: requested by attending/covering physician, from patient, risks and benefits reviewed and patient agrees to proceed Lumbar Level: L3-L4 Epidural position: sitting Epidural procedure: sterile prep of area, 1% lidocaine to numb the area, 18 g needle, neg for paresthesia, test dose given, 1.5% xylocaine 1:200k epi, placed PCEA, no systemic response, sterile dressing applied and 0.2% Ropiavacaine @ mls/hr (10) Additional Comments: BHARTI at 5cm, cath at 10cm, bolused 5mls of 2% lido PF
--- NOTE | 2023-04-10 14:15 | P.PN_ITS ---
DIRECTOR OF FOOD AND BEVERAGE SERVICES Subjective 2 Subjective: Interval history: Fetus reassuring Cervix: complete / +1 station Labor: Station: +1 Amniotic Membrane Status: Ruptured Monitor Mode: External Contraction Pattern: Irregular Vitals/I&O/Wt Last Vital Signs Temp 98.5 F 04/10/23 22:30 Pulse 85 04/10/23 22:30 Resp 18 04/10/23 20:30 BP 134/87 04/10/23 22:30 Pulse Ox 98 04/10/23 22:30 O2 Del Method Room Air 04/10/23 22:30 04/10/23 04/10/23 04/11/23 14:59 22:59 06:59 Intake Total 1119.75 / 1119.75 479.5 / 1599.25 Output Total 500 / 500 Balance 1119.75 / 1119.75 -20.5 / 1099.25 Weight last 48 hrs Weight 242 lb Physical Exam 2 Urinary Catheter Management: [place]: Cath Placed During This Visit: yes, but has since been removed by the nurse Reason for Continuing Indwelling Catheter: Decision to DC Catheter Urinary Catheter Date of Insertion: 04/10/23 Urinary Catheter Time of Insertion: 07:40 Date Urinary Catheter Removed: 04/10/23 Time Urinary Catheter Discontinued: 13:28 Data 04/11/23 03:00 A&P Assessment and plan (1) Encounter for induction of labor: Attestations 2 Medical Necessity Statement*: patient at 40 w 6 d, admitted for induction of labor Coding Level of Care Code Acute Code for Chg Fwd Diagnoses Encounter for induction of labor Z34.90 Time Spent (min) 20
[2023-04-10] MEDS: lidocaine 1% INJ 10 mL (per mL) INTRADERMA (15:00)
--- NOTE | 2023-04-10 15:40 | P.PN_ITS ---
ENERGY AND CONSERVATION TECHNICIAN Subjective 2 Subjective: Interval history: DELIVERY NOTE , vigorous female infant Cord gases obtained Normal placenta and cord Second-degree perineal laceration repaired EBL: 300 cc No complications Labor: Station: +1 Amniotic Membrane Status: Ruptured Monitor Mode: External Contraction Pattern: Irregular Vitals/I&O/Wt Last Vital Signs Temp 98.5 F 04/10/23 22:30 Pulse 85 04/10/23 22:30 Resp 18 04/10/23 20:30 BP 134/87 04/10/23 22:30 Pulse Ox 98 04/10/23 22:30 O2 Del Method Room Air 04/10/23 22:30 04/10/23 04/10/23 04/11/23 14:59 22:59 06:59 Intake Total 1119.75 / 1119.75 479.5 / 1599.25 Output Total 500 / 500 Balance 1119.75 / 1119.75 -20.5 / 1099.25 Weight last 48 hrs Weight 242 lb Physical Exam 2 Urinary Catheter Management: [place]: Cath Placed During This Visit: yes, but has since been removed by the nurse Reason for Continuing Indwelling Catheter: Decision to DC Catheter Urinary Catheter Date of Insertion: 04/10/23 Urinary Catheter Time of Insertion: 07:40 Date Urinary Catheter Removed: 04/10/23 Time Urinary Catheter Discontinued: 13:28 Data 04/11/23 03:00 A&P Assessment and plan (1) Encounter for induction of labor: Attestations 2 Medical Necessity Statement*: patient at 40 w 6 d, admitted for induction of labor; now with vaginal delivery Coding Level of Care Code Acute Code for Chg Fwd Diagnoses Encounter for induction of labor Z34.90 Time Spent (min) 90
--- NOTE | 2023-04-10 15:40 | PM.DELIVERY ---
Delivery Note: Date of delivery: April 10, 2023 Pre-delivery diagnoses: 40 w 6 d admitted for labor induction Post-delivery diagnoses: same vaginal delivery Procedure: labor induction vaginal delivery repair of second-degree perineal laceration Op report anesthesia: Epidural Delivering Physician: Reid Gomez MD Estimated blood loss (mL): 300 Findings: , vigorous female infant Cord gases obtained Normal placenta and cord Second-degree perineal laceration repaired EBL: 300 cc No complications Pre-Delivery Course: normal labor course Delivery: vaginal Post-Delivery Status: good History History History 1 Term Miscarriages/Ectopic Living Children A&P Assessment and plan (1) Vaginal delivery: (2) Second degree perineal laceration during delivery: repaired Coding Level of Care Code Acute Code for Chg Fwd Diagnoses Vaginal delivery O80 Second degree perineal laceration during delivery O70.1 Time Spent (min) 90
[2023-04-10] MEDS: ibuprofen 800 mg tablet PO (20:02)
[2023-04-10] MEDS: docusate sodium 100 mg Capsule PO (20:02)
[2023-04-10] MEDS: HYDROcodone-acetaminophen 5-325 mg Tablet PO (20:02)
[2023-04-10] MEDS: benzocaine-menthol 78 gm Canister 1 SPRAY TOPICAL (20:03)
[2023-04-10] MEDS: lanolin oint 7 gm 1 APPLIC TOPICAL (20:03)
[2023-04-11 03:41] LABS: Hematocrit 33.9 % (36-47); Mean Corpuscular HGB Conc 32.4 g/dL (30-55); Mean Corpuscular Hemoglobin 27.3 pg (27-33); Mean Corpuscular Volume 84.1 fl (85-98); Mean Platelet Volume 12.6 fL (7.4-10.4); Platelet Count 251 10^3/cmm (157-399); Red Blood Count 4.03 10^6/uL (3.85-5.65); Red Cell Distribution Width 14.2 % (12.1-15.1)
[2023-04-11 04:00] VITALS: BP 135/79; PULSE 89; RESP 18; TEMP 36.4; O2SAT 98
--- NOTE | 2023-04-11 07:18 | ANE.PACU2 ---
Inpatient post-anesthesia follow up: Airway intact: Yes Vital signs: Temperature 97.6 F Pulse Rate 89 Respiratory Rate 18 Blood Pressure 135/79 Pulse Oximetry 98 Oxygen Delivery Me thod Room Air Oxygen Flow Rate Fraction of Inspir ed Oxygen Hydration adequate: Yes Nausea and vomiting: No Pain level: 2 Mental status: Baseline Epidural Start/End: Epidural Start Date: 04/10/23 Epidural Start Time: 06:45 Epidural End Date: 04/10/23 Epidural End Time: 15:40
[2023-04-11] MEDS: ibuprofen 800 mg tablet PO ×2 (08:57→17:04)
[2023-04-11] MEDS: docusate sodium 100 mg Capsule PO ×2 (08:57→17:04)
[2023-04-11] MEDS: prenatal vitamin Capsule 1 CAP PO (08:57)
--- NOTE | 2023-04-11 09:15 | P.PN_ITS ---
REHABILITATION DIRECTOR Subjective 2 Subjective: Interval history: no c/o no bleeding, pain eating, voiding, ambulating well caring for without any problems patient wants to go home Labor: Station: +1 Amniotic Membrane Status: Ruptured Monitor Mode: External Contraction Pattern: Irregular Vitals/I&O/Wt Last Vital Signs Temp 98.6 F 04/11/23 17:20 Pulse 101 H 04/11/23 17:20 Resp 16 04/11/23 17:20 BP 119/75 04/11/23 17:20 Pulse Ox 96 04/11/23 17:20 O2 Del Method Room Air 04/11/23 11:56 Physical Exam 2 Narrative: afebrile, VS normal comfortable, awake, alert Abd: soft, nontender. fundus firm Ext: no edema; nontender Urinary Catheter Management: [place]: Cath Placed During This Visit: yes, but has since been removed by the nurse Reason for Continuing Indwelling Catheter: Decision to DC Catheter Urinary Catheter Date of Insertion: 04/10/23 Urinary Catheter Time of Insertion: 07:40 Date Urinary Catheter Removed: 04/10/23 Time Urinary Catheter Discontinued: 13:28 Data 04/11/23 03:00 A&P Assessment and plan (1) Vaginal delivery: PPD #1 doing well discharge home today instructions and precautions given call/return if fever, chills, headache, blurry vision, nausea, vomiting, abdominal pain; vaginal bleeding or discharge; shortness of breath, chest pain, leg pains or swelling; inability to void, perineal pain or swelling; feelings of depression or mood changes; thoughts of suicide or harming others; inability to care for baby. f/u in 6 weeks or PRN (2) Second degree perineal laceration during delivery: Attestations 2 Medical Necessity Statement*: patient s/p vaginal delivery, plan discharge today Coding Level of Care Code Acute Code for Chg Fwd Diagnoses Vaginal delivery O80 Second degree perineal laceration during delivery O70.1 Time Spent (min) 20
--- NOTE | 2023-04-11 09:20 | PM.OBGYDC ---
Discharge Providers SENIOR TERADATA DEVELOPER Date of Admission: 04/09/23 20:18 Date of Discharge: 04/11/23 Attending Provider at Admission: Reid Gomez MD Attending Provider at Discharge: Reid Gomez MD Consults: none Primary SENIOR TERADATA DEVELOPER: Reid Gomez MD Diagnoses at Discharge Discharge Diagnosis (1) Vaginal delivery: Details from hospital stay: patient with normal labor course had vaginal delivery with repair of second-degree perineal laceration patient did well with no complications Status: Acute (2) Second degree perineal laceration during delivery: Status: Acute Reason for Visit Reason for Visit: induction Brief History: 22 y.o. G1 At 40 w 5 d No complications Admitted for labor induction Hospital Course Hospital Course normal labor course Information Peripartum Data: Delivery Method: Vaginal Laceration description: Perineal - 2nd Degree Episiotomy description: None complications: none Physical Exam Narrative: afebrile, VS normal comfortable, awake, alert Abd: soft, nontender. fundus firm Ext: no edema; nontender Urinary Catheter Management: [place]: Cath Placed During This Visit: yes, but has since been removed by the nurse Reason for Continuing Indwelling Catheter: Decision to DC Catheter Urinary Catheter Date of Insertion: 04/10/23 Urinary Catheter Time of Insertion: 07:40 Date Urinary Catheter Removed: 04/10/23 Time Urinary Catheter Discontinued: 13:28 History History History 1 Term Miscarriages/Ectopic Living Children Discharge Data Studies Completed and Pending Laboratory Results WBC 16.40 10^3/uL (3.29-11.43) H 04/11/23 03:00 RBC 4.03 10^6/uL (3.85-5.65) 04/11/23 03:00 Hgb 11.00 g/dL (11.27-16.99) L 04/11/23 03:00 Hct 33.9 % (36-47) L 04/11/23 03:00 MCV 84.1 fl (85-98) L 04/11/23 03:00 MCH 27.3 pg (27-33) 04/11/23 03:00 MCHC 32.4 g/dL (30-55) 04/11/23 03:00 RDW 14.2 % (12.1-15.1) 04/11/23 03:00 Plt Count 251 10^3/cmm (157-399) 04/11/23 03:00 MPV 12.6 fL (7.4-10.4) H 04/11/23 03:00 Neut % (Auto) 80.1 % 04/09/23 21:44 Lymph % (Auto) 14.5 % 04/09/23 21:44 [place] % (Auto) 4.0 % 04/09/23 21:44 Eos % (Auto) 0.2 % 04/09/23 21:44 Baso % (Auto) 0.2 % 04/09/23 21:44 Neut # (Auto) 13.37 10^3/uL (1.8-7.7) H 04/09/23 21:44 Lymph # (Auto) 2.4 10^3/uL (0.8-4.8) 04/09/23 21:44 [place] # (Auto) 0.7 10^3/uL (0.2-0.9) 04/09/23 21:44 Eos # (Auto) 0.0 10^3/uL (0.0-0.8) 04/09/23 21:44 Baso # (Auto) 0.0 10^3/uL (0.0-0.1) 04/09/23 21:44 Nucleated RBC % (auto) 0 % 04/09/23:44 Nucleated RBCs # 0.0 /100WBC 04/09/23 21:44 Urine Opiates Screen Negative ng/mL (Negative) 04/09/23 21:35 Ur Barbiturates Screen Negative ng/mL (Negative) 04/09/23 21:35 Ur Phencyclidine Scrn Negative ng/mL (Negative) 04/09/23 21:35 Ur Amphetamines Screen Negative ng/mL (Negative) 04/09/23 21:35 U Benzodiazepines Scrn Negative ng/mL (Negative) 04/09/23 21:35 Urine Cocaine Screen Negative ng/mL (Negative) 04/09/23 21:35 U Marijuana (THC) Screen Positive ng/mL (Negative) H 04/09/23 21:35 Blood Type O Positive 04/09/23 21:44 Rho(D) Type Rh positive 04/09/23 21:44 Antibody Screen Negative 04/09/23 21:44 Procedures Performed labor induction vaginal delivery repair of second-degree perineal laceration Vitals Last Vital Signs Temp 98.6 F 04/11/23 17:20 Pulse 101 H 04/11/23 17:20 Resp 16 04/11/23 17:20 BP 119/75 04/11/23 17:20 Pulse Ox 96 04/11/23 17:20 O2 Del Method Room Air 04/11/23 11:56 Results Labs OB ([facility]): Obstetrics US 12/20/22 Obstetrics US/Biophysical Profile 01/27/23 Blood Type O Positive 04/09/23 Antibody Screen Negative 04/09/23 Hct 33.9 % (36-47) L 04/11/23 Hgb 11.00 g/dL (11.27-16.99) L 04/11/23 Rho(D) Type Rh positive 04/09/23 Plt Count 251 10^3/cmm (157-399) 04/11/23 Hep Bs Antigen Non-reactive (Nonreactive) 09/24/22 Hepatitis C Antibody Non-reactive (Nonreactive) 09/24/22 Rubella IgG Antibody 14.0 IU/mL (0.0-10.0) H 09/24/22 RPR Nonreactive (Nonreactive) 09/24/22 HIV 1&2 Ab & HIV 1 Ag Non-reactive (Non-Reactiv) 09/24/22 C.trachomatis RNA (TMA) Not detected (NOT DETECTED) 02/26/23 N.gonorrhoeae RNA (TMA) Not detected (NOT DETECTED) 02/26/23 T. vaginalis Amp RNA Not detected (NOT DETECTED) 02/26/23 Chlamydia/GC Comment See note 02/26/23 Glucose 1 Hr 50 gm 128 mg/dL (85-140) 01/14/23 Ser , Semi-Qnt 96503.00 mIU/mL 08/12/22 HCG, Qual Positive (Negative) H 08/14/22 Urine Opiates Screen Negative ng/mL (Negative) 04/09/23 Ur Barbiturates Screen Negative ng/mL (Negative) 04/09/23 Ur Phencyclidine Scrn Negative ng/mL (Negative) 04/09/23 Ur Amphetamines Screen Negative ng/mL (Negative) 04/09/23 U Benzodiazepines Scrn Negative ng/mL (Negative) 04/09/23 Urine Cocaine Screen Negative ng/mL (Negative) 04/09/23 U Marijuana (THC) Screen Positive ng/mL (Negative) H 04/09/23 Micro Urine Specimen 09/02/22 Discharge Plan Discharge Patient Disposition: Home Condition: Stable Prescriptions: New Percocet 5-325 mg tablet 1 tab PO Q8H PRN (Reason: pain) Qty: 14 0RF Continued Abrysvo 120 mcg/0.5 mL recon soln 0.5 ml IM ONCE Qty: 1 0RF famotidine 20 mg tablet 20 mg PO BID Qty: 60 2RF Discharge Orders: Discharge Order (Routine); Ordered 04/11/23 Ordered By: Reid Gomez Referrals: Reid Gomez MD [Physician] - 05/21/23 1:30 pm Discharge Diet: Usual diet Discharge Activity: Increase activity as tolerated Patient Instructions: Oxycodone/Acetaminophen (By mouth), Depression (DC), Expression, Collection and Storage of Breast Milk (DC), How to Hold and Breastfeed Your Baby (DC), and Nipple Soreness (DC), and Breast Engorgement (DC), and Plugged Ducts (DC), How to Increase Your Milk Supply (DC), and Your Diet (DC), Effects of Smoking, Alcohol, and Medicines on (DC), Preeclampsia and Eclampsia After Delivery (GEN), Breast Care for the Mother (DC), OB Care at Home, Opioid Safety, Abnormal Bleeding Discharge Attestations SENIOR TERADATA DEVELOPER Time Spent in Discharge Care*: less than 30 min Coding Level of Care Code Acute Code for Chg Fwd Diagnoses Vaginal delivery O80 Second degree perineal laceration during delivery O70.1 Time Spent (min) 20
[2023-04-11 11:56] VITALS: BP 128/86; PULSE 100; RESP 18; TEMP 37.1; O2SAT 98
[2023-04-11 17:20] VITALS: BP 119/75; PULSE 101; RESP 16; TEMP 37; O2SAT 96
== END 2023-04-11 17:20 | disposition home or self-care (01) | DRG 807 ==
LOC: OPOB 20:19 → OBGYN 20:19
PROVIDERS: Admitting Provider Obstetrics & Gynecology; Visit Provider Obstetrics & Gynecology
DX: O48.0 Post-term pregnancy (principal); Z37.0 Single live birth; Z3A.40 40 weeks gestation of pregnancy; O70.1 Second degree perineal laceration during delivery
CPT/HCPCS: 36415; 36416; 51702; 59025; 59409; 80306; 85025; 85027; 86850; 86900; 98960; 99211; J2590; J2795; J7120; J7121

== ENCOUNTER → 2024-02-04 12:44 | Outpatient (BNVA) | payer MEDICAID, SELFPAY | PROVIDERS: Visit Provider Family Medicine | DX: M25.522 Pain in left elbow (principal); Z01.419 Encounter for gynecological examination (general) (routine) without abnormal findings | CPT/HCPCS: 73080; 88175 ==

== ENCOUNTER 2024-09-09 10:59 | Outpatient (CLI) | payer MEDICAID, SELFPAY ==
[2024-09-09 12:11] LABS: Basophils % 0.4 %; Eosinophils # 0.1 10^3/uL (0.0-0.8); Eosinophils % 0.8 %; Hematocrit 42.7 % (36-47); Lymphocytes % 26.5 %; Mean Corpuscular HGB Conc 32.1 g/dL (30-55); Mean Corpuscular Hemoglobin 28.2 pg (27-33); Mean Platelet Volume 11.3 fL (7.4-10.4); Monocytes # 0.4 10^3/uL (0.2-0.9); Monocytes % 5.5 %; Neutrophils # 4.98 10^3/uL (1.8-7.7); Neutrophils % 66.5 %; Nucleated Red Blood Cells % 0 %; Platelet Count 256 10^3/cmm (157-399); Red Blood Count 4.85 10^6/uL (3.85-5.65); Red Cell Distribution Width 12.7 % (12.1-15.1); White Blood Count 7.48 10^3/uL (3.29-11.43)
[2024-09-09 12:30] LABS: HCG Quantitative < 1.00 mIU/mL
[2024-09-09 12:50] LABS: Hepatitis A Antibody IgM Non-Reactive (Nonreactive); Hepatitis B Core IgM Non-Reactive (Nonreactive); Hepatitis B Surface Antigen Non-Reactive (Nonreactive); Hepatitis C Virus Antibody Non-Reactive (Nonreactive)
[2024-09-09 12:53] LABS: Alanine Aminotransferase 8 U/L (0-33); Albumin Level 4.1 g/dL (3.5-5.2); Alkaline Phosphatase 78 U/L (35-105); Anion Gap 16.4 (5-19); Aspartate Amino Transferase 9 U/L (0-32); Bilirubin Direct 0.14 mg/dL (0.00-0.30); Blood Urea Nitrogen 7 mg/dL (6-20); Carbon Dioxide 24 mmol/L (22-29); Chloride 102 mmol/L (98-107); Globulin 2.9 g/dL (1.3-4.6); Glomerular Filtration Rate 104.6 mL/min (90-130); Glucose 83 mg/dL (65-115); Osmolality Calculated 283 mOsm/kg (285-295); Potassium 4.4 mmol/L (3.5-5.1); Sodium 138 mmol/L (136-145); Total Bilirubin 0.4 mg/dL (0.15-1.2)
== END 2024-09-09 11:00 | disposition home or self-care (01) ==
LOC: LAB 11:05
PROVIDERS: PCP Family Medicine; Visit Provider Nurse Practitioner Family
DX: L20.89 Other atopic dermatitis (principal)
CPT/HCPCS: 36415; 80048; 80074; 80076; 84702; 85025; 86480